=== PATIENT | female | born 1950 | race Caucasian/White ===

== ENCOUNTER 2023-03-29 11:20 | Outpatient (OUT) | payer MEDICARE, OTHER, SELFPAY ==
[2023-03-29 11:46] LABS: Basophils Absolute Auto 0.1 10^3/uL (0.0-0.1); Basophils Percent Auto 1.3 % (0.2-2.0); Eosinophils Percent Auto 0.7 % (0.9-7.0); Hematocrit 40.9 % (36.0-48.0); Hemoglobin 13.5 g/dL (12.0-16.0); Immature Granulocytes Abs Auto 0.03 10^3/uL (0.00-0.03); Immature Granulocytes Pct Auto 0.5 % (0.0-0.5); Lymphocytes Absolute Auto 1.5 10^3/uL (1.2-3.8); Lymphocytes Percent Auto 24.8 % (20.5-60.0); Mean Corpuscular Hemoglobin 30.5 pg (26.7-34.0); Mean Corpuscular Volume 92.5 fL (81.0-99.0); Mean Platelet Volume 10.5 fL (9.5-13.5); Monocytes Percent Auto 16.2 % (1.7-12.0); Neutrophils Absolute Auto 3.5 10^3/uL (1.4-6.5); Neutrophils Percent Auto 56.5 % (43.0-75.0); Platelet Count 298 10^3/uL (150-450); Red Blood Count 4.42 10^6/uL (4.20-5.40); Red Cell Distribution Width 12.6 % (11.0-15.0); White Blood Count 6.1 10^3/uL (4.0-11.0)
== END 2023-03-29 11:21 | disposition home or self-care (01) ==
LOC: LAB 11:26
PROVIDERS: PCP Internal Medicine
DX: H02.839 Dermatochalasis of unspecified eye, unspecified eyelid (principal); H57.819 Brow ptosis, unspecified
CPT/HCPCS: 36415; 85025

== ENCOUNTER 2023-06-13 10:57 | Outpatient (OUT) | payer MEDICARE, OTHER, SELFPAY ==
--- OUTSIDE RECORDS SUMMARY | 2023-06-13 11:01 | XMS_ITS | CCD ---
Author Name Unknown Address [facility] [address] [place] [address] Organization [facility] Care Team Providers Care Relief Charge Nurse Name Role Phone Ai Tucker Unavailable LANIE OBREGON Primary Care Physician Unavail able SIMONE, DR MELVI Freeman Admitting Unavailable SIMONE, DR MELVI Freeman Attending Unavailable DANIEL, DR RIOS Primary Care Unavailable SIMONE, DR MELVI Freeman Consulting Unavailable SIMONE, DR MELVI Freeman Admitting Unavailable SIMONE, DR MELVI Freeman Attending Unavailable DANIEL, DR RIOS Primary Care Unavailable LANIE OBREGON Attending Unavailable LANIE OBREGON Referring Unavailable Allergies Allergy Classification Reported Allergen(s) Allergy Type Date of Onset Reaction(s) Facility (1 source) Sulfacetamide Drug Allergy Adynxx [facility] Other (1 source) Sulfonamides (Antibiotic); Translations: [sulfa drugs] Propensity to adverse reactions to substance Weal (disorder) [facility] [place] (1 source) Sulfonamides (Antibiotic) Drug allergy (disorder) [facility] Repository Medications Current Medications Medication Drug Class(es) Dates Sig (Normalized) Sig (Original) amitriptyline hydrochloride 50 mg oral tablet (2 sources) Tricyclic Antidepressant Start: 04-23-2019 amitriptyline 50 mg Tab Refills(s) 0 Start Date: 04/23/19 Status: Ordered aspirin 81 mg chewable tablet (2 sources) Platelet Aggregation Inhibitor, Nonsteroidal Anti-inflammatory Drug Start: 04-23-2019 aspirin 81 mg Chew Tab Refills(s) 0 Start Date: 04/23/19 Status: Ordered Aspirin 1 tab Or al Active atorvastatin (2 sources) HMG-CoA Reductase Inhibitor Start: 04-23-2019 atorvastatin Refills (s) 0 Start Date: 04/23/19 Status: Ordered take 1 tablet by chuck th every twenty-four hours Atorvastatin Calcium 20 MG 1 tablet Oral ly Once a day Active Zyrtec (1 source) Histamine-1 Receptor Antagonist Start: 04-23-2019 Zyrtec Refills(s) 0 Start Date: 04/23/19 Status: Ordered estradiol 0.5 mg oral tablet (2 sources) Estrogen Start: 04-23-2019 estradiol 0.5 mg oral tablet Refills(s) 0 Start Date: 04/23/19 Status: Ordered Fish Oils (1 source) Start: 04-23-2019 Fish Oil Refil l(s) 0 Start Date: 04/23/19 Status: Ordered hydroCHLOROthiazide 12.5 mg / losartan potassium 50 mg oral tablet (2 sources) Thiazide Diuretic, Angiotensin 2 Receptor Mitzy Start: 04-23-2019 hydrochlorothiazid e-losartan 12.5 mg-50 mg Tab Refill(s) 0 Start Date: 04/23/19 Status: Ordered Losartan Potassi um-HCTZ 100-25 MG Oral for 90 Active Meclizine (1 source) Antiemetic Start: 04-23-2019 meclizine Refills(s) 0 Start Date: 04/23/19 Status: Ordered medroxyPROGESTERone acetate 2.5 mg oral tablet (2 sources) Progestin Start: 04-23-2019 medroxyPROGESTERone 2.5 mg Tab Refills(s) 0 Start Date: 04/23/19 Status: Ordered 24 hr metoprolol succinate 50 mg extended release oral tablet (2 sources) beta-Adrenergic Mitzy Start: 04-23-2019 metoprolol 50 mg ER Tab Refills(s) 0 Start Date: 04/23/19 Status: Ordered Metoprolol Tartr ate 50 MG Oral for 90 Active Zofran (1 source) Serotonin-3 Receptor Antagonist Start: 04-23-2019 Zofran Refills(s) 0 Start Date: 04/23/19 Status: Ordered Imitrex (1 source) Serotonin-1b and Serotonin-1d Receptor Agonist Start: 04-23-2019 Imitrex Refills(s) 0 Start Date: 04/23/19 Status: Ordered Vital-D (1 source) Start: 04-23-2019 Vital-D Refill (s) 0 Start Date: 04/23/19 Status: Ordered Problems Active Problems Problem Classification Problem Date Documented Da te Episodic/Chronic Nonmalignant breast conditions (1 source) O/E - breast asymmetry 04-23-2019 Episodic Varicose veins of lower extremity (4 sources) Varicose veins of bilateral lower extremities with pain; Translations: [VARICOSE VNS RUDI LOW EXTREM W/PAIN] Onset: 07-05-2022 Episodic Past or Other Problems Problem Classification Problem Date Documented Da te Episodic/Chronic Immunizations and screening for infectious disease (1 source) Contact with and (suspected) exposure to other viral communicable diseases Onset: 10-26-2021 Resolved: 10-26-2021 Episodic Other upper respiratory infections (1 source) Acute upper respiratory infection, unspecified Onset: 10-26-2021 Resolved: 10-26-2021 Episodic Results Test Name Value Interpretation Reference Range Facility Physician Orderon 06-09-2023 Physician Order [id number] IFF Normal [facility] COVID Quick Testingon 2021 Result Negative [facility] Other Comprehensive Metabolic Pane martínez 09-21-2021 Albumin [Mass/Vol] 4.4 g/dL Normal 3.6-5.1 [facility] Labor Contract Analyst Comment on above: Performed By: #### C MP #### [facility] [address] [place], [place] [id number] Albumin/Globulin [Mass ratio] 2.3 {ratio} Normal 1.0-2.5 [facility] Specialist Comment on above: Performed By: #### C MP #### [facility] [address] [place], [place] [id number] ALP [Catalytic activity/Vol] 81 U/L Normal 35-119 [facility] Specialist Comment on above: Performed By: #### C MP #### [facility] [address] [place], [place] [id number] ALT [Catalytic activity/Vol] 18 U/L Normal 6-33 [facility] Specialist Comment on above: Result Comment: 05/06 Female reference range changed. Performed By: #### C MP #### [facility] [address] [place], [place] [id number] Anion gap [Moles/Vol] 15 mmol/L Normal 12-20 [facility] Labor Contract Analyst Comment on above: Result Comment: Effe ctive 06/11/2019 reference range changed. Performed By: #### C MP #### [facility] [address] [place], [place] [id number] AST [Catalytic activity/Vol] 13 U/L Normal 9-34 [facility] Comment on above: Performed By: #### C MP #### [facility] [address] [place], [place] [id number] Bilirubin [Mass/Vol] 0.82 mg/dL Normal 0.30-1.20 [facility] Comment on above: Performed By: #### C MP #### [facility] [address] [place], [place] [id number] BUN/CREA 23 Ratio High 6-22 [facility] Comment on above: Performed By: #### C MP #### [facility] [address] [place], [place] [id number] Calcium [Mass/Vol] 11.1 mg/dL High 8.6-10.2 [facility] Comment on above: Performed By: #### C MP #### [facility] [address] [place], [place] [id number] Chloride [Moles/Vol] 103 mmol/L Normal 98-107 [facility] Comment on above: Performed By: #### C MP #### [facility] [address] [place], [place] [id number] CO2 [Moles/Vol] 25 mmol/L Normal 20-31 [facility] Comment on above: Performed By: #### C MP #### [facility] [address] [place], [place] [id number] Creatinine [Mass/Vol] 0.7 mg/dL Normal 0.6-1.4 [facility] Comment on above: Performed By: #### C MP #### [facility] [address] [place], [place] [id number] eGFRAA 102 mL/min/1.73m2 Normal >60 [facility] Comment on above: Performed By: #### C MP #### [facility] [address] [place], [place] [id number] eGFRNAA 84 mL/min/1.73m2 Normal >60 [facility] Comment on above: Performed By: #### C MP #### [facility] [address] [place], [place] [id number] Globulin (S) [Mass/Vol] 1.9 g/dL Normal 1.9-3.7 [facility] Specialist Comment on above: Performed By: #### C MP #### [facility] [address] [place], [place] [id number] Glucose [Mass/Vol] 103 mg/dL High 65-99 [facility] Specialist Comment on above: Result Comment: For FASTING Glucose --- ADA reference ranges: Normal 65-99 mg/dl Prediabetes 100-125 Diabetes >/= 126 Performed By: #### C MP #### [facility] [address] [place], [place] [id number] Potassium [Moles/Vol] 3.7 mmol/L Normal 3.5-5.5 [facility] Specialist Comment on above: Performed By: #### C MP #### [facility] [address] [place], [place] [id number] Protein [Mass/Vol] 6.3 g/dL Normal 6.1-8.1 [facility] Specialist Comment on above: Performed By: #### C MP #### [facility] [address] [place], [place] [id number] Sodium [Moles/Vol] 139 mmol/L Normal 135-146 [facility] Specialist Comment on above: Performed By: #### C MP #### [facility] [address] [place], [place] [id number] Urea nitrogen [Mass/Vol] 16 mg/dL Normal 7-25 [facility] Specialist Comment on above: Performed By: #### C MP #### [facility] [address] [place], [place] [id number] Parathyroid Hormone, Intacto n 09-21-2021 PTH 63.07 pg/mL Normal 16.00-65.00 [facility] Specialist Comment on above: Performed By: #### P TH* #### [facility] [address] [place], [place] [id number] HISTORY PHYSICALon 7 HISTORY PHYSICAL HNO ID: [id number]: Candace Holbrook-DayService: (none)Author Type: (none)Type: HANDPFiled: 04/14/2017 11:38 AMNote Text:COSMETIC SURGERY CHIEFLANDVENU GOOD DO FACOSFOLLOW-UPName: Candace AmbrizMRN: [id number] HPI AND PERTINENT ROS:66-year-old female presents in consultation for face and neck liftpossible lower eyelidsand possible lateral browlift. She has a history ofhypertension high cholesterol and migraines all controlled on medications.PHYSICAL EXAM:GEN: Alert, oriented, NADLUNGS: Unlabored breathingPERTINENT: face neck laxity lateral brow ptosis and lower eyeliddermatochalasia and fat pads.ASSESSMENT and PLAN of CARE:Dr. Good agrees with my assessment and together we discussed risksand complications alternatives and benefits All questions answered. Photostoday and pricingMarKerbs [facility] Hospital 2016 [facility] PROGRESSon 04-14-2017 PROGRESS HNO ID: [id number]: Venu GoodService: (none)Author Type: PhysicianType: Progress NotesFiled: 04/14/2017 11:38 AMNote Text:COSMETIC SURGERY DANNY KOVACSSHELLYDO FACOSName: Candace AmbrizMRN: [id number] we discussed facial rejuvenation. 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 Herdistraction and snap test are within normal limits. She is an excellentcandidate for natural vector face and neck lift. I explained to her thatfacelift will not improve perioral lines and the chin area. This wouldrequire laser resurfacing and/or injectables and/or chemical peels ormicro-needling.I have discussed in the presence of my nurse in considerable detail thenature of the procedure of Natural Vector face/neck lift. I have talkedabout the nature of the operation, the time of convalescence being about14 to 17 days during which time the patient will be swollen and bruised.There will be decreased sensation in the face over this period of timethat will progressively improve over a 6 to12 month period. We havetalked about the incisions, which will be temporal, intratragal,postauricul ar, and submental, and I have shown the patient pictures ofthese types of incisions and subsequent scars. People vary in theirability to form scars and the nature of the scar is highly dependent onthe patient's individual healing potential. I have talked about potentialrisks and possible complications of facelift surgery. The risks include:hypertrophic or keloid scars; infection, which is rare, and all mypatients receive antibiotics; bleeding, the commonest complication offace-lifting surgery, and I have cautioned the patient not to takeaspirin, herbals, vitamins, aspirin-containing products or Vitamin E for aperiod of three weeks prior to elective surgery as these increase the riskof bleeding. I stated to the patient that a little less than 1% ofpatients collect an accumulation of blood underneath the skin calledhematoma. This may require a trip back to the operating room to evacuatea collection of blood and this is more of a nuisance than a seriouscomplication. I have not had to transfuse anybody for such bleeding.Skin loss either behind the ear or in front of the face may occur. Thisis exceptionally rare and usually occurs in people who have been smokersor are diabetics. I therefore do not operate on people who are smokersand caution smokers to discontinue prior to elective surgery. Alopeciamay occur along the temporal incision. Asymmetry and recurrence of facialrhytids may occur as well. The most serious complication, is injury topart or whole of the facial nerve or deeper structures that results inweakness or paralysis of the face that may be permanent, however this hasnever occurred in my practice. We have discussed the nature of theprocedure of facelift in detail, highlighting realistic expectations,potential risks and possible complications. Together with viewing thephotographs, the patient is now fully informed as to the nature of thiselective cosmetic procedure. The patient was invited to return or callwith any further questions before making a decision for surgery. IT HASBEEN EXPLAINED IN DETAIL NOT TO TAKE ASPIRIN, ASPIRIN-CONTAINING PRODUCTS,HERBALS AND VITAMIN E FOR TWO TO THREE WEEKS PRIOR TO ELECTIVE SURGERY ASTHESE INCREASE THE RISK OF BLEEDING AND HEMATOMA FORMATION. THE PATIENTWAS INFORMED THAT SMOKERS HAVE A GREATER RISK OF SKIN LOSS, SCARRING ANDWOUND HEALING COMPLICATIONS. THE PATIENT WAS GIVEN NO GUARANTEE OFRESULTS. If we have to return to surgery to correct any problems, I havediscussed in detail with the patient that if this return to the O.R. isnot covered by insurance, I do not charge the patient, however, there willbe a charge for the O.R. and anesthesia, over which I have no control.MAF/nn (Dictated, but not read.)I have today, in the presence of my nurse, discussed the operation ofupper and lower blepharoplasty in considerable detail. I shared with thepatient photographs of people who have undergone similar procedures, shownthe patient the sites of incisions and subsequent scars. The upper lidblepharoplasty leaves incisions and subsequent scars in the fold of theeyelid. The recuperation is about 7 to 10 days, during which time therewill be swelling and bruising. Some people encounter blurry visionchanges due to the swelling overlying the cornea, however this willprogressively return to normal. I have discussed the time ofconvalescence, potential risks and possible complications in detail.Scars vary according to the individual patient's healing potential and maybecome hypertrophic or keloid. Asymmetry is a potential risk as nopatient has identical eyelids. Infection is rare and all my patientsreceive antibiotics. Delayed healing, which is more common in smokers.Bleeding can occur and is increased with the use of aspirin products.Bleeding around the eye can lead to blindness, although this is extremelyrare. Risks of lower lid blepharoplasty include; ectropion, which ispulling down of the lower eyelid and this is usually a result of lowereyelid laxity, in an older patient this may occur due to weakness of theorbicularis muscle and occasionally requires a secondary procedure tocorrect the droopiness of the eyelid. So, having discussed the operationin detail, shown the patient pictures of other patients, the patientshould now be fully informed as to the nature of the procedure includingrisks and potential complications. The patient was invited to return orcall with any further questions before making a decision for surgery. ITHAS BEEN EXPLAINED IN DETAIL NOT TO TAKE ASPIRIN, ASPIRIN-CONTAININGPRODU CTS AND VITAMIN E FOR TWO TO THREE WEEKS PRIOR TO ELECTIVE SURGERY ASTHESE INCREASE THE RISK OF BLEEDING AND HEMATOMA FORMATION. THE PATIENTWAS INFORMED THAT SMOKERS HAVE A GREATER RISK OF SKIN LOSS, SCARRING ANDWOUND HEALING COMPLICATIONS. THE PATIENT WAS GIVEN NO GUARANTEE OFRESULTS. If we have to return to surgery to correct any problems, I havediscussed in detail with the patient that if this return to the O.R. isnot covered by insurance, I do not charge the patient, however, there willbe a charge for the O.R. and anesthesia, over which I have no control.I have discussed in detail in the presence of my nurse the procedure ofendoscopic brow lift. The patient understands that the endoscopic browlift procedure is done through four to five small incisions set back fromthe hairline. These small incisions are used to allow the endoscope to beinserted and do the majority of the procedure through thisminimally-invasive technique. The small access incisions replace thelarger bicoronal incision that was the traditional way to do a brow lift.The operation requires lifting the skin of the forehead off of theunderlying bone all the way down to the eyebrow level. I explained thatduring this procedure, muscles of frowning are weakened in an attempt toreduce the lines, wrinkles and furrows of the brow and glabella area. Theresults of lifting are not permanent and the effects of aging continue.Other risks include: infection, which is rare and all my patients receiveantibiotics; bleeding, which may cause a collection of blood, or hematoma;seroma, a fluid collection which may need to be drained; permanentweakness of frowning due to injury of the frontal branch of the facialnerve may occur but this is exceptionally rare; alopecia at the incisionssites; hypertrophic or keloid scarring from the incisions; delayedhealing, more common in smokers; possible asymmetry and recurrence of thebrow ptosis. The patient was shown appropriate photographs of before andafter patients with similar procedures. The patient was encouragedschedule an additional appointment prior to the surgery to discuss anyquestions that the patient might have. The patient will be giveninformation regarding the timing and costs of the procedure. IT HAS BEENEXPLAINED IN DETAIL NOT TO TAKE ASPIRIN, ASPIRIN-CONTAINING PRODUCTS ANDVITAMIN E FOR TWO TO THREE WEEKS PRIOR TO ELECTIVE SURGERY THESEINCREASE THE RISK OF BLEEDING AND HEMATOMA FORMATION. THE PATIENT WASINFORMED THAT SMOKERS HAVE A GREATER RISK OF SKIN LOSS, SCARRING AND WOUNDHEALING COMPLICATIONS. THE PATIENT WAS GIVEN NO GUARANTEE OF RESULTS. Ifwe have to return to surgery to correct any problems, I have discussed indetail with the patient that if this return to the O.R. is not covered byinsurance, I do not charge the patient, however, there will be a chargefor the O.R. and anesthesia, over which I have no control. MAF/nn(Dictated, but not read.)Any concerns or questions prior to next appointment, patient is to calloffice or return sooner.Hola Deal 2016This note was generated with voice recognition software and may containerrors, including spelling, grammar, syntax and misrecognition of what wasdictated, that are not fully corrected. Normal [facility] Vital Signs Date Time Vital Sign Value Performing Clinician Facility 10-26-2021 11:20-0400 Body height 170.18 cm Ai Tucker Other [facility] Other 10-26-2021 11:20-0400 Body mass index (BMI) [Ratio] 21.92 kg/m2 Ai Tucker Other [facility] Other 10-26-2021 11:20-0400 Body temperature 98.4 [degF] Ai Tucker Other [facility] Other 10-26-2021 11:20-0400 Body weight 63.5 kg Ai Tucker Other [facility] Other 10-26-2021 11:20-0400 Respiratory rate 16 /min Ai Tucker Other [facility] Other 10-26-2021 11:20-0400 SaO2% (BldA) [Mass fraction] 99 % Ai Tucker Other [facility] Other Encounters Encounter Date Encounter Type Care Provider Facility Start: 04-21-2023 End: 04-21-2023 ambulatory LANIE OBREGON Not Available Start: 07-15-[address] MELVI Vitale y:[facility]1 Start: 07-05-2022 End: 07-06-[address] MELVI NICHOLS Facility:[facility] Start: 06-08-2022 End: 06-08-2022 Patient encounter procedure Charisma She[facility] Start: 10-26-2021 End: 10-26-2021 ambulatory Ai Tucker Other [facility] Other Start: 10-26-2021 Office outpatient vi sit 15 minutes Ai Tucker [facility] Procedures Date Procedure Procedure Detail Performing Clinician Cosmetic surgery Ai Hutchins nd Other Payers Date Payer Category Payer Medicare [id number] 2.1 [id number] 1960 Medicare [id number] 2. [id number] 1950 Unknown [id number] 1950 Unknown [id number] 1950 Unknown [id number] Medicare [id number] [id number] Social History Date Type Detail Facility Unknown if ever smoked [facility] Other Sex Assigned At [facility] Tobacco smoking status No Smoking Status Entered [facility] Evaluation note 10-26-2021 Note Date & Type Note Facility 10-26-2021 Evaluation note Encounter Date Diagnosis Assessment Notes October, Contact with and (suspected) exposure to other viral communicable diseases (ICD-10 - Z20.828) October, Viral upper respiratory infection (ICD-10 - J06.9) Drink plenty fluids, get plenty of rest. Take Tylenol Motrin for aches pains or fevers. You may take glza-cfs-ggsics r allergy or cold medicine for your symptoms. Follow-up with your family physician if no improvement in 2 to 3 days. October, Other Additional time spent conducting pre-visit phone call, screening for symptoms, instructions on social distancing, application and removal of PPE, and cleaning of examination room, equipment and supplies was preformed. Patient education given for testing methodology and results. Patient care instructions given in writting by [facility] Home document. [facility] Other History general Narrative - Reported 06-01-2017 Note Date & Type Note Facility 06-01-2017 History general N arrative - Reported Type Surgical History tonsillectomy Surgical History vein stripping Surgical History Cosm Injection Volum a 2 vials / Vollure 1 vial 06/01/2017 [facility] Other Evaluation + Plan note Note Date & Type Note Facility Evaluation + Plan note No data available for this section [facility] Hospital Discharge instructions Note Date & Type Note Facility Hospital Discharge instructions No data available for this section [facility] Progress note Note Date & Type Note Facility Progress note No data available for this section [facility] Summary Purpose Family History No Family History Records FoundNo Family History Records FoundNo Family History Records FoundNo Family History Records FoundNo Family History Records Found Advance Directives No Advanced Directives Records FoundNo Advanced Directives Records FoundNo Advanced Directives Records FoundNo Advanced Directives Records FoundNo Advanced Directives Records Found Additional Source Comments INFORMATION SOURCE (unrecogn ized section and content) DATE CREATED AUTHOR 11/29/2017 [facility] DATE CREATED AUTHOR AUTHOR'S ORGANIZ ATION 09/22/2021 [facility] dical Specialist DATE CREATED AUTHOR AUTHOR'S ORGANIZ ATION 07/26/2022 [facility] pital DATE CREATED AUTHOR AUTHOR'S ORGANIZ ATION 04/23/2023 [facility] dical Specialists EPIC DATE CREATED AUTHOR AUTHOR'S ORGANIZ ATION 06/10/2023 [facility] REASON FOR VISIT (unrecogniz ed section and content) BLACK ENCLAVE, SORE THROAT, CONGESTION, COUGH Patient Care team informatio n (unrecognized section and content) Personnel Name: LANIE OBREGON DO Address: Address: [address] [place] [phone] FOR RECORDS PERTAINING TO PATIENTS WHO ARE OR HAVE BEEN ENROLLED IN A CHEMICAL DEPENDENCY/SUBSTANCEABUSE PROGRAM, SOME INFORMATION MAY BE OMITTED. This clinical summary was aggregated from multiple sources. Caution should be exercised in using it in the provision of clinical care. This summary normalizes information from multiple sources, and as a consequence, information in this document may materially change the coding, format and clinical context of patient data. In addition, data may be omitted in some cases. CLINICAL DECISIONS SHOULD BE BASED ON THE PRIMARY CLINICAL RECORDS. [facility] [employer] [facility]. provides no warranty or guarantee of the accuracy or completeness of information in this document.
--- NOTE | 2023-06-13 11:04 | US_ITS ---
The [address] [address] Patient Name: ALISA AMBRIZ MRN: [id number] date: 1950 Sex: F Assigned Patient Location: US Current Patient Location: US Accession/Order Number: [id number] Exam Date: 06/13/2023 11:05 Report Date: 06/13/2023 12:11 At the request of: NON-STAFF PHYSICIAN Procedure: US pelvis w/ transvaginal EXAMINATION: US pelvis w/ transvaginal HISTORY: pelvic pain R10.2 COMPARISON: No relevant comparison available. FINDINGS: The uterus is anteverted. Uterus is normal in size and contour measuring 8.1 x 3.3 x 5.2 cm. Heterogeneous myometrial echotexture with multiple areas of hyperechogenicity likely representing calcifications. No focal mass. The endometrium measures 5 mm, heterogeneous. The right ovary measures 2.7 x 1.7 x 1.5 cm. Normal color Doppler flow. 9 mm echogenic focus likely a calcification, nonspecific Left ovary is normal measuring 2.0 x 1.3 x 1.8 cm. Normal color and Doppler flow US/US pelvis w/ transvaginal IMPRESSION: Mildly heterogeneous myometrium with no focal mass 9 mm right ovarian calcification, nonspecific Electronically authenticated by: MELVI NICHOLS Date: 06/13/2023 12:11
== END 2023-06-13 10:58 | disposition home or self-care (01) ==
LOC: US 10:57
PROVIDERS: PCP Internal Medicine
DX: R10.2 Pelvic and perineal pain (principal)
CPT/HCPCS: 76830; 76856

== ENCOUNTER 2023-11-01 10:16 | Outpatient (OUT) | payer MEDICARE, OTHER, SELFPAY ==
--- OUTSIDE RECORDS SUMMARY | 2023-11-01 10:26 | XMS_ITS | CCD ---
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 Name Role Phone Ai Tucker Unavailable LANIE [...] Reaction(s) Facility (1 source) Sulfacetamide Drug Allergy [employer] Other (2 sources) Sulfonamides (Antibiotic); Translations: [sulfa drugs] Propensity to adverse reactions to substance Weal (disorder) [facility] Pep (1 source) Sulfonamides (Antibiotic) Drug allergy (disorder) [facility] Repository Medications Current Medications Medication Drug Class(es) Dates Sig (Normalized) Sig (Original) amitriptyline hydrochloride 50 mg oral tablet (3 sources) Tricyclic Antidepressant Start: 04-23-2019 amitriptyline 50 mg Tab Refills(s) 0 Start Date: 04/23/19 Status: Ordered aspirin 81 mg chewable tablet (3 sources) Platelet Aggregation Inhibitor, Nonsteroidal Anti-inflammatory Drug Start: 04-23-2019 aspirin 81 mg Chew Tab Refills(s) 0 Start Date: 04/23/19 Status: Ordered Aspirin 1 tab Or al Active atorvastatin (3 sources) HMG-CoA Reductase Inhibitor Start: 04-23-2019 atorvastatin Refills (s) 0 Start Date: 04/23/19 Status: Ordered take 1 tablet by chuck th every twenty-four hours Atorvastatin Calcium 20 MG 1 tablet Oral ly Once a day Active Zyrtec (2 sources) Histamine-1 Receptor Antagonist Start: 04-23-2019 Zyrtec Refills(s) 0 Start Date: 04/23/19 Status: Ordered estradiol 0.5 mg oral tablet (3 sources) Estrogen Start: 04-23-2019 estradiol 0.5 mg oral tablet Refills(s) 0 Start Date: 04/23/19 Status: Ordered Fish Oils (2 sources) Start: 04-23-2019 Fish Oil Refil l(s) 0 Start Date: 04/23/19 Status: Ordered hydroCHLOROthiazide 12.5 mg / losartan potassium 50 mg oral tablet (3 sources) Thiazide Diuretic, Angiotensin 2 Receptor Mitzy Start: 04-23-2019 hydrochlorothiazid e-losartan 12.5 mg-50 mg Tab Refill(s) 0 Start Date: 04/23/19 Status: Ordered Losartan Potassi um-HCTZ 100-25 MG Oral for 90 Active Meclizine (2 sources) Antiemetic Start: 04-23-2019 meclizine Refills(s) 0 Start Date: 04/23/19 Status: Ordered medroxyPROGESTERone acetate 2.5 mg oral tablet (3 sources) Progestin Start: 04-23-2019 medroxyPROGESTERone 2.5 mg Tab Refills(s) 0 Start Date: 04/23/19 Status: Ordered 24 hr metoprolol succinate 50 mg extended release oral tablet (3 sources) beta-Adrenergic Mitzy Start: 04-23-2019 metoprolol 50 mg ER Tab Refills(s) 0 Start Date: 04/23/19 Status: Ordered Metoprolol Tartr ate 50 MG Oral for 90 Active Zofran (2 sources) Serotonin-3 Receptor Antagonist Start: 04-23-2019 Zofran Refills(s) 0 Start Date: 04/23/19 Status: Ordered Imitrex (2 sources) Serotonin-1b and Serotonin-1d Receptor Agonist Start: 04-23-2019 Imitrex Refills(s) 0 Start Date: 04/23/19 Status: Ordered Vital-D (2 sources) Start: 04-23-2019 Vital-D Refill (s) 0 Start Date: 04/23/19 Status: Ordered Problems Active Problems Problem Classification Problem Date Documented Da te Episodic/Chronic Nonmalignant breast conditions (2 sources) O/E - breast asymmetry 04-23-2019 Episodic Varicose [...] Range Facility Physician Orderon 06-09-2023 Physician Order [id number] IFF Normal [facility] COVID Quick Testingon 2021 Result Negative [facility] Other [facility] 09-21-2021 Albumin [Mass/Vol] 4.4 g/dL Normal 3.6-5.1 Felipe [facility] Chief Maintenance Supervisor Comment on above: Performed By: #### C MP #### [facility] [address], [place] [id number] Albumin/Globulin [Mass ratio] 2.3 {ratio} Normal 1.0-2.5 [facility] Specialist Comment on above: Performed By: #### C MP #### [facility] [address], [place] [id number] ALP [Catalytic activity/Vol] 81 U/L Normal 35-119 [facility] Specialist Comment on above: Performed By: #### C MP #### [facility] [address], [place] [id number] ALT [Catalytic activity/Vol] 18 U/L Normal 6-33 [facility] Specialist Comment on above: Result Comment: 05/06 Female reference range changed. Performed By: #### C MP #### [facility] [address], [place] [id number] Anion gap [Moles/Vol] 15 mmol/L Normal 12-20 [facility] Chief Maintenance Supervisor Comment on above: Result Comment: Effe ctive 06/11/2019 reference range changed. Performed By: #### C MP #### [facility] [address], [place] [id number] AST [Catalytic activity/Vol] 13 U/L Normal 9-34 [facility] Comment on above: Performed By: #### C MP #### [facility] [address], [place] [id number] Bilirubin [Mass/Vol] 0.82 mg/dL Normal 0.30-1.20 [facility] Comment on above: Performed By: #### C MP #### [facility] [address], [place] [id number] BUN/CREA 23 Ratio High 6-22 [facility] Comment on above: Performed By: #### C MP #### [facility] [address], [place] [id number] Calcium [Mass/Vol] 11.1 mg/dL High 8.6-10.2 [facility] Comment on above: Performed By: #### C MP #### [facility] [address], [place] [id number] Chloride [Moles/Vol] 103 mmol/L Normal 98-107 [facility] Comment on above: Performed By: #### C MP #### [facility] [address], [place] [id number] CO2 [Moles/Vol] 25 mmol/L Normal 20-31 [facility] Comment on above: Performed By: #### C MP #### [facility] [address], [place] [id number] Creatinine [Mass/Vol] 0.7 mg/dL Normal 0.6-1.4 [facility] Comment on above: Performed By: #### C MP #### [facility] [address], [place] [id number] eGFRAA 102 mL/min/1.73m2 Normal >60 [facility] Comment on above: Performed By: #### C MP #### [facility] [address], [place] [id number] eGFRNAA 84 mL/min/1.73m2 Normal >60 [facility] Comment on above: Performed By: #### C MP #### [facility] [address], [place] [id number] Globulin (S) [Mass/Vol] 1.9 g/dL Normal 1.9-3.7 [facility] Specialist Comment on above: Performed By: #### C MP #### [facility] [address], [place] [id number] Glucose [Mass/Vol] 103 mg/dL High 65-99 [facility] Specialist Comment on above: Result Comment: For FASTING Glucose --- ADA reference ranges: Normal 65-99 mg/dl Prediabetes 100-125 Diabetes >/= 126 Performed By: #### C MP #### [facility] [address], [place] [id number] Potassium [Moles/Vol] 3.7 mmol/L Normal 3.5-5.5 [facility] Specialist Comment on above: Performed By: #### C MP #### [facility] [address], [place] [id number] Protein [Mass/Vol] 6.3 g/dL Normal 6.1-8.1 [facility] Special[facility] Comment on above: Performed By: #### C MP #### [facility] [address], [place] [id number] Sodium [Moles/Vol] 139 mmol/L Normal 135-146 [facility] Specialist Comment on above: Performed By: #### C MP #### [facility] [address], [place] [id number] Urea nitrogen [Mass/Vol] 16 mg/dL Normal 7-25 [facility] Specialist Comment on above: Performed By: #### C MP #### [facility] [address], [place] [id number] Parathyroid Hormone, Intacto n 09-21-2021 PTH 63.07 pg/mL Normal 16.00-65.00 [facility] Comment on above: Performed By: #### P TH* #### [facility] [address], [place] [id number] HISTORY PHYSICALon 7 HISTORY PHYSICAL HNO ID: [id number]: Alisa Holbrook-DayService: (none)Author Type: (none)Type: HANDPFiled: 04/14/2017 11:38 AMNote Text:COSMETIC SURGERY LODIVENU GOOD DO FACOSFOLLOW-UPName: Alisa AmbrizMRN: [id number] HPI AND PERTINENT ROS:66-year-old female presents in [...] and benefits All questions answered. [facility]2016 [facility] PROGRESSon 04-14-2017 PROGRESS HNO ID: [id number]: Venu GoodSer: (none)Author Type: PhysicianType: Progress NotesFiled: 04/14/2017 11:38 AMNote Text:COSMETIC SURGERY LODIVENU GOOD DO FACOSName: Alisa AmbrizMRN: [id number] we discussed facial rejuvenation. She has ptotic [...] wasdictated, that are not fully corrected. Normal [facility] Vital Signs Date Time Vital Sign Value Performing Clinician Facility 10-26-2021 11:20-0400 Body height 170.18 cm Ai Tucker Other [facility] Other 10-26-2021 11:20-0400 Body mass index (BMI) [Ratio] 21.92 kg/m2 Ai Tucker Other [facility] Other 10-26-2021 11:20-0400 Body temperature 98.4 [degF] Ai Tucker Other [facility] Other 10-26-2021 11:20-0400 Body weight 63.5 kg Ai Tucker Other [facility] Other 10-26-2021 11:20-0400 Respiratory rate 16 /min Ai Tucker Other [facility] Other 10-26-2021 11:20-0400 SaO2% (BldA) [Mass fraction] 99 % Ai Tucker Other [facility] Other Encounters Encounter Date Encounter Type Care Provider Facility Start: 06-29-2023 End: 06-29-2023 Patient encounter procedure Charisma Shea [facility] Start: 04-21-2023 End: 04-21-2023 ambulatory LANIE OBREGON Not Available Start: 07-15-[address] MELVI NICHOLS Facilit y:[facility] Start: 07-05-2022 End: 07-06-[address] MELVI NICHOLS Facility:[facility] Start: 06-08-2022 End: 06-08-2022 Patient encounter procedure Charisma Shea [facility] Start: 10-26-2021 End: 10-26-2021 ambulatory Ai Tucker Other [facility] Other Start: 10-26-2021 Office outpatient vi sit 15 minutes Ai Tucker [facility] Procedures Date Procedure Procedure Detail Performing Clinician Cosmetic surgery Ai Hutchins nd Other Payers Date Payer Category Payer Medicare [id number] 2.1 [id number] 1960 Medicare [id number] 2. [id number] 1950 Unknown [id number] 1950 Unknown [id number] 1950 Unknown [id number] Medicare [id number] [id number]. [id number] Social History Date Type Detail Facility Unknown if ever smoked [facility] Other Sex Assigned At [facility] Tobacco smoking status No Smoking Status Entered [facility] Evaluation note 10-26-2021 Note Date & Type Note Facility 10-26-2021 Evaluation note Encounter Date Diagnosis Assessment Notes October, Contact with and (suspected) exposure to other viral communicable diseases (ICD-10 - Z20.828) October, Viral upper respiratory infection (ICD-10 - J06.9) Drink plenty fluids, get plenty of rest. Take Tylenol Motrin for aches pains or fevers. You may take [id number] r allergy or cold medicine for your [...] Patient care instructions given in writting by [facility] Care At Home document. [facility] Other History general Narrative - Reported 06-01-2017 Note Date & Type Note Facility 06-01-2017 History general N arrative - Reported Type Surgical History tonsillectomy Surgical History vein stripping Surgical History Cosm Injection Volum a 2 vials / Vollure 1 vial 06/01/2017 [facility] Other Evaluation + Plan note Note Date & Type Note Facility Evaluation + Plan note No data available for this section [facility] Hospital Discharge instructions Note Date & Type Note Facility Hospital Discharge instructions No data available for this section [facility] Progress note Note Date & Type Note Facility Progress note No data available for this section [facility] Summary Purpose Family History No Family History Records FoundNo Family History Records FoundNo Family History Records FoundNo Family History Records FoundNo Family History Records Found No data available for this section Advance Directives No Advanced Directives Records FoundNo Advanced Directives Records FoundNo Advanced Directives Records FoundNo Advanced Directives Records FoundNo Advanced Directives Records Found Additional Source Comments INFORMATION SOURCE (unrecogn ized section and content) DATE CREATED AUTHOR 11/29/2017 [facility] DATE CREATED AUTHOR AUTHOR'S ORGANIZ ATION 09/22/2021 [facility] dical Specialist DATE CREATED AUTHOR AUTHOR'S ORGANIZ ATION 07/26/2022 [facility] DATE CREATED AUTHOR AUTHOR'S ORGANIZ ATION 04/23/2023 [facility] Special[facility] EPIC DATE CREATED AUTHOR AUTHOR'S ORGANIZ ATION 06/10/2023 [facility] REASON FOR VISIT (unrecogniz ed section and content) BLACK ENCLAVE, SORE THROAT, CONGESTION, COUGH Patient Care team informatio n (unrecognized section and content) Personnel Name: LANIE OBREGON DO Address: Address: [address] [place] [address] [address] [place] [address] Personnel Name: LANIE ORBEGON DO Address: Address: [address] [place] [address] [address] [place] [address] FOR RECORDS PERTAINING TO PATIENTS WHO ARE [...] BE BASED ON THE PRIMARY CLINICAL RECORDS. [facility] [employer] provides no warranty or guarantee of the accuracy or completeness of information in this document.
[2023-11-01 11:36] LABS: Alanine Aminotransferase 39 U/L (14-59); Albumin Globulin Ratio 1.1; Albumin Level 3.7 g/dL (3.4-5.0); Alkaline Phosphatase 90 U/L (46-116); Anion Gap 11.1; Aspartate Amino Transferase 22 U/L (15-37); BUN Creatinine Ratio 23.3; Bilirubin Total 1.5 mg/dL (0.2-1.0); Calcium 9.7 mg/dL (8.5-10.1); Carbon Dioxide 28.3 mmol/L (21.0-32.0); Chloride 100 mmol/L (98-107); Chol HDL Ratio 3.1; Cholesterol 195 mg/dL (<=200); Estimated GFR (African America >60 (>=60); Estimated GFR (Non-African Ame >60 (>=60); Globulin 3.5 g/dL; Glucose 91 mg/dL (74-106); HDL Cholesterol 62 mg/dL (40-60); Phosphorus 3.3 mg/dL (2.6-4.7); Potassium 3.4 mmol/L (3.5-5.1); Sodium 136 mmol/L (136-145); Total Protein 7.2 g/dL (6.4-8.2); Triglycerides 116 mg/dL (<=150); VLDL CHOLESTEROL 23.2 mg/dL
[2023-11-01 18:34] LABS: Creatinine Urine Random 140.61 mg/dL (20.00-300.00); Microalbumin Urine Random 3.1 mg/dL (<=30.0)
[2023-11-02 12:12] LABS: PTH, Intact 52 pg/mL (15-65)
== END 2023-11-01 10:17 | disposition home or self-care (01) ==
PROVIDERS: PCP Internal Medicine; Visit Provider Nurse Practitioner Adult Health
DX: E78.2 Mixed hyperlipidemia (principal); I10 Essential (primary) hypertension; E83.52 Hypercalcemia
CPT/HCPCS: 36415; 80053; 80061; 82043; 82570; 83970; 84100